=== PATIENT | male | born 1985 | race Two or more races ===

== ENCOUNTER 2016-12-22 19:44 | Emergency (ER) | payer SELFPAY ==
[~2016-12-22] VITALS: Ht 175.3 cm; Wt 93.0 kg
[2016-12-22] MEDS ORDERED: MORPHINE SULFATE 4 MG/ML CPJ (NOT FOR IM USE) IV STA (22:59)
[2016-12-22] MEDS ORDERED: SODIUM CHLORIDE 0.9% 1,000 ML IV ONE (22:59)
[2016-12-22] MEDS ORDERED: ONDANSETRON HCL 4MG/2ML VIAL IV STA (22:59)
[2016-12-22] MEDS ORDERED: PANTOPRAZOLE SODIUM 40 MG/VIAL IV STA (22:59)
[2016-12-22 23:28] LABS: BASOPHILS % 0.7 % (0.0-2.0); EOSINOPHILS % 5.9 % (0.0-5.0); LYMPHOCYTES % 42.7 % (20.0-50.0); MEAN CORPUSCULAR HEMOGLOBIN 26.4 pg (28.0-32.0); MEAN PLATELET VOLUME 7.1 fl (7.4-10.4); MONOCYTES % 11.7 % (2.0-8.0); PLATELET 344 x1000/uL (130-400); RED BLOOD CELL COUNT 4.94 mill/uL (4.7-6.1); RED CELL DISTRIBUTION WIDTH 13.7 % (11.6-14.6)
[2016-12-22 23:34] LABS: CHLORIDE 105 mEq/L (98-107)
[2016-12-22 23:35] LABS: INR 1.1; PROTHROMBIN TIME 11.4 sec
[2016-12-22 23:42] LABS: CARBON DIOXIDE 25 mEq/L (21-32)
[2016-12-22 23:48] LABS: CLARITY URINE CLEAR (CLEAR); COLOR URINE YELLOW (YELLOW); GLUCOSE URINE NEGATIVE (NEGATIVE); KETONES URINE NEGATIVE (NEGATIVE); LEUKOCYTE ESTERASE URINE NEGATIVE (NEGATIVE); NITRITE URINE NEGATIVE (NEGATIVE); OCCULT BLOOD URINE NEGATIVE (NEGATIVE); PROTEIN URINE NEGATIVE (NEGATIVE); SPECIFIC GRAVITY URINE 1.004 (1.005-1.030); UROBILINOGEN URINE 0.2 E.U./dL (0.2-1.0)
[2016-12-23] MEDS ORDERED: ONDANSETRON HCL 4MG/2ML VIAL IV ONE (02:00)
[2016-12-23] MEDS ORDERED: MORPHINE SULFATE 4 MG/ML CPJ (NOT FOR IM USE) IV ONE (02:00)
[2016-12-23] MEDS ORDERED: ONDANSETRON HCL 4MG/2ML VIAL ONE (02:12)
[2016-12-23 05:41] VITALS: BP 114/72
== END 2016-12-23 06:30 | disposition left against medical advice (07) ==
LOC: ER 19:44
DX: R10.30 Lower abdominal pain, unspecified (principal); R19.7 Diarrhea, unspecified; R11.10 Vomiting, unspecified; K51.90 Ulcerative colitis, unspecified, without complications; J45.909 Unspecified asthma, uncomplicated
CPT/HCPCS: 36415; 80053; 81003; 83690; 85025; 85610; 96361; 96374; 96375; 96376; 99285; C9113; J2270; J2405; J7030; Z7610